=== PATIENT | female | born 1965 | race Caucasian/White ===

== ENCOUNTER 2017-11-06 14:47 | Emergency (ER) | payer MEDICAID ==
[2017-11-06 14:52] VITALS: BMI 26.6
[2017-11-06 14:56] VITALS: RESP 18
[2017-11-06] MEDS ORDERED: Sodium Chloride 0.9% 1,000 ML IV STA (16:26)
--- NOTE | 2017-11-06 16:36 | ED PDOC ---
Arrival/HPI - General Chief Complaint: Anxiety Time Seen by Provider: 11/06/17 15:56 Historian: Patient - History of Present Illness Narrative History of Present Illness (Text): 11/06/17 16:30 52 year o9ld female, whose past medical history includes non-insulin dependent diabetes, who presents to the emergency department from school complaining of an episode of hyperventilation, body tingling, bilateral jaw pain, numbness around the mouth, and weakness. Patient states these symptoms began after an emotional talk with her nurse healthcare manager and subsided after 20 minutes. Patient notes she has been fasting for . Patient's last meal was yesterday. Patient is compliant with hyperglycemic medication and diabetes medication. Patient denies any fever, chills, chest pain, shortness of breath, nausea, vomiting, diarrhea, back pain, neck pain, headache, dizziness, blurry vision or any other complaints. 11/06/17 17:50 Time/Duration: 1-3 hours Symptom Onset: Sudden Symptom Course: Improving Activities at Onset: Light Context: Work Past Medical History - Provider Review Nursing Documentation Reviewed: Yes - Infectious Disease Hx of Infectious Diseases: None - Reproductive Menopause: Yes - Psychiatric Hx Substance Use: No - Anesthesia Hx Anesthesia: No Hx Anesthesia Reactions: No Hx Malignant Hyperthermia: No Family/Social History - Physician Review Nursing Documentation Reviewed: Yes Family/Social History: Unknown Family HX Smoking Status: Never Smoked Hx Alcohol Use: No Hx Substance Use: No Allergies/Home Meds Allergies/Adverse Reactions: Allergies No Known Allergies Allergy (Verified 11/06/17 15:57) Review of Systems - Physician Review All systems were reviewed & negative as marked: Yes - Review of Systems Constitutional: Fatigue Eyes: Normal ENT: Normal Respiratory: Other (hyperventilation). absent: SOB, Cough Cardiovascular: Normal. absent: Chest Pain, Palpitations Gastrointestinal: Normal. absent: Abdominal Pain, Diarrhea, Nausea, Vomiting Genitourinary Female: Normal. absent: Dysuria, Hematuria, Urine Output Changes Musculoskeletal: Other (bilateral jaw pain; numbness around the mouth). absent : Back Pain, Neck Pain Skin: Normal. absent: Rash Neurological: Normal. absent: Headache, Dizziness Endocrine: Normal Hemo/Lymphatic: Normal Psychiatric: Normal Physical Exam Vital Signs Reviewed: Yes Vital Signs Temp Pulse Resp BP Pulse Ox 11/06/17 16:25 79 18 152/74 H 98 11/06/17 14:52 98.6 F 88 18 162/88 H 99 Temperature: Afebrile Blood Pressure: Hypertensive Pulse: Regular Respiratory Rate: Normal Appearance: Positive for: Well-Appearing, Non-Toxic, Comfortable Pain Distress: None Mental Status: Positive for: Alert and Oriented X 3 - Systems Exam Head: Present: Atraumatic, Normocephalic Pupils: Present: PERRL Extroacular Muscles: Present: EOMI Conjunctiva: Present: Normal Mouth: Present: Moist Mucous Membranes Neck: Present: Normal Range of Motion. No: Meningeal Signs, MIDLINE TENDERNESS , JVD Respiratory/Chest: Present: Clear to Auscultation, Good Air Exchange. No: Respiratory Distress, Accessory Muscle Use Cardiovascular: Present: Regular Rate and Rhythm, Normal S1, S2. No: Murmurs Abdomen: No: Tenderness, Distention, Peritoneal Signs Back: Present: Normal Inspection. No: CVA Tenderness, Midline Tenderness Upper Extremity: Present: Normal Inspection. No: Cyanosis, Edema Lower Extremity: Present: Normal Inspection. No: Edema, CALF TENDERNESS Neurological: Present: GCS=15, CN II-XII Intact, Speech Normal Skin: Present: Warm, Dry, Normal Color. No: Rashes Psychiatric: Present: Alert, Oriented x 3, Normal Insight, Normal Concentration Medical Decision Making ED Course and Treatment: 11/06/17 16:40 Impression: 52 year old female presents to the emergency department complaining of hyperventilation, numbness around the mouth, bilateral jaw pain, and general weakness s/p emotional talk with nurse healthcare manager. Plan: -- EKG -- Labs -- Chest X-ray -- Sodium Chloride -- Urinalysis -- Reassess and disposition Progress Notes: EKG reviewed, shows sinus bradycardia at 59 bpm . Chest X-ray reviewed, shows: LUNGS: No active pulmonary disease. PLEURA: No significant pleural effusion identified, no pneumothorax apparent. CARDIOVASCULAR: No radiographic findings to suggest acute or significant cardiovascular disease. OSSEOUS STRUCTURES: No significant abnormalities. VISUALIZED UPPER ABDOMEN: Normal. OTHER FINDINGS: None. IMPRESSION: No active disease. No significant interval change compared to the prior examination(s). 11/06/17 17:52 pt feeling better, less anxious , refusing ativan. continues to deny any complaints of chest pain . 11/06/17 18:41 nsr @ 64 bpm low voltage qrs, no ischemic st-t segments, nonarrythmogenic intervals given copy of lab tests for follow up with her regular pmd, and anxiety reduction techniques discussed. . - Lab Interpretations Lab Results: 11/06/17 16:33 11/06/17 16:33 Lab Results 11/06/17 16:33: Urine Color Light yellow, Urine Appearance Clear, Urine pH 6.5, Ur Specific [place] 1.010, Urine Protein Negative, Urine Glucose (UA) >=1000, Urine Ketones Trace H, Urine Blood Negative, Urine Nitrate Negative, Urine Bilirubin Negative, Urine Urobilinogen 0.2, Ur Leukocyte Esterase Trace H, Urine RBC Negative, Urine WBC 0 - 2, Ur Epithelial Cells 1 - 3 11/06/17 16:33: Urine Opiates Screen Negative, Urine Methadone Screen Negative, Ur Barbiturates Screen Negative, Ur Phencyclidine Scrn Negative, Ur Amphetamines Screen Negative, U Benzodiazepines Scrn Negative, U Oth Cocaine Metabols Negative, U Cannabinoids Screen Negative 11/06/17 16:33: Sodium 143, Potassium 3.5 L, Chloride 107, Carbon Dioxide 25, Anion Gap 15, BUN 15, Creatinine 0.5 L, Est GFR ( Amer) > 60, Est GFR ( Non-Af Amer) > 60, Random Glucose 74, Calcium 10.8 H, Total Bilirubin 0.5, AST 19, ALT 21, Alkaline Phosphatase 79, Total Protein 7.4, Albumin 4.3, Globulin 3.0, Albumin/Globulin Ratio 1.4 11/06/17 16:33: WBC 5.5, RBC 4.51, Hgb 12.8, Hct 37.5, MCV 83.1, MCH 28.4, MCHC 34.1, RDW 12.8, Plt Count 306, MPV 9.5, Gran % 47.5 L, Lymph % (Auto) 44.5 H, [place] % (Auto) 6.0, Eos % (Auto) 1.6, Baso % (Auto) 0.4, Gran # 2.62, Lymph # ( Auto) 2.5, [place] # (Auto) 0.3, Eos # (Auto) 0.1, Baso # (Auto) 0.02 - RAD Interpretation Radiology Orders: 11/06/17 15:58 CHEST PORTABLE [RAD] Stat - Medication Orders Current Medication Orders: Discontinued Medications Sodium Chloride (Sodium Chloride 0.9%) 1,000 mls @ 999 mls/hr IV .Q1H1M STA Stop: 11/06/17 17:26 Last Admin: 11/06/17 16:32 Dose: 999 mls/hr eMAR Start Stop Document 11/06/17 16:32 OCS (Rec: 11/06/17 16:32 OCS [id number]) Intravenous Solution Start Date 11/06/17 Start Time 16:32 End Date 11/06/17 End time 17:33 Total Infusion Time 61 Lorazepam (Ativan) 0.5 mg PO ONCE ONE PRN Reason: Protocol Stop: 11/06/17 16:57 Last Admin: 11/06/17 17:20 Dose: Not Given Non-Admin Reason: Patient Refused - Scribe Statement The provider has reviewed the documentation as recorded by the Scribe Whitley Duarte All medical record entries made by the Scribe were at my direction and personally dictated by me. I have reviewed the chart and agree that the record accurately reflects my personal performance of the history, physical exam, medical decision making, and the department course for this patient. I have also personally directed, reviewed, and agree with the discharge instructions and disposition. Disposition/Present on Arrival - Present on Arrival Any Indicators Present on Arrival: No History of DVT/PE: No History of Uncontrolled Diabetes: No Urinary Catheter: No History of Decub. Ulcer: No History Surgical Site Infection Following: None - Disposition Have Diagnosis and Disposition been Completed?: Yes Diagnosis: Anxiety Disposition: HOME/ ROUTINE Disposition Time: 18:43 Patient Plan: Discharge Condition: IMPROVED Print Language: KAZAKH Additional Instructions: Deep breathing , looking at your problem from a larger perspective, going for a walk, and engaging with supportive loved ones will help you to weathe rfuture anxiety episodes. You can take the prescribed medication for overwhleming anxiety , we also have outpatient counselors available at your disposal . You should also eat pre sunset breakfast while you are taking antihyperglycemic medication. Prescriptions: hydrOXYzine HCl [Atarax] 50 mg PO Q8 PRN #20 tab PRN Reason: Anxiety Referrals: Aamir Taylor MD [Primary Care Provider] - Follow up with primary Forms: [employer] (Slovenian)
--- NOTE | 2017-11-06 16:41 | RAD ---
HISTORY: Routine medical exam. COMPARISON: 09/06/2013 FINDINGS: LUNGS: No active pulmonary disease. PLEURA: No significant pleural effusion identified, no pneumothorax apparent. CARDIOVASCULAR: No radiographic findings to suggest acute or significant cardiovascular disease. OSSEOUS STRUCTURES: No significant abnormalities. VISUALIZED UPPER ABDOMEN: Normal. OTHER FINDINGS: None. IMPRESSION: No active disease. No significant interval change compared to the prior examination(s).
[2017-11-06 17:18] LABS: BASO # 0.02 K/mm3 (0.0-2.0); BASO % 0.4 % (0.0-3.0); EOS # 0.1 (0.0-0.7); EOS % 1.6 % (1.5-5.0); GRAN # 2.62 (1.4-6.5); GRAN % 47.5 % (50.0-68.0); HEMOGLOBIN 12.8 g/dL (12.0-16.0); LYMPH # 2.5 (1.2-3.4); LYMPH % 44.5 % (22.0-35.0); MEAN CELL VOLUME 83.1 fl (80.0-105.0); MEAN CORPUSCULAR HEMOGLOBIN 28.4 pg (25.0-35.0); MEAN CORPUSCULAR HGB CONC 34.1 g/dl (31.0-37.0); MEAN PLATELET VOLUME 9.5 fl (7.0-11.0); MONO # 0.3 (0.1-0.6); RBC 4.51 10^6/uL (3.5-6.1); RED CELL DISTRIBUTION WIDTH 12.8 % (11.5-14.5); WHITE BLOOD COUNT 5.5 10^3/ul (4.5-11.0)
[2017-11-06 17:19] LABS: ALB/GLOB RATIO 1.4 (1.1-1.8); ALBUMIN 4.3 g/dL (3.0-4.8); ALT/SGPT 21 U/L (7-56); AST/SGOT 19 U/L (14-36); BLOOD UREA NITROGEN 15 mg/dL (7-21); CALCIUM 10.8 mg/dL (8.4-10.5); GFR AFRICAN-AMERICAN > 60; GFR NON-AFRICAN AMERICAN > 60
[2017-11-06 17:33] LABS: BARBITURATES, UR NEGATIVE (NEGATIVE); BENZODIAZEPINES, UR NEGATIVE (NEGATIVE); OPIATES, UR NEGATIVE (NEGATIVE); PHENCYCLIDINE, UR NEGATIVE (NEGATIVE)
[2017-11-06 17:53] LABS: PH,URINE 6.5 (4.7-8.0); URINE BILIRUBIN NEGATIVE (NEGATIVE); URINE BLOOD NEGATIVE (NEGATIVE); URINE GLUCOSE (UA) >=1000 mg/dL (NEGATIVE); URINE LEUKOCYTE ESTERASE TRACE Leu/uL (NEGATIVE); URINE PROTEIN NEGATIVE mg/dL (<30 mg/dL); URINE UROBILINOGEN 0.2 E.U./dL (<1 E.U./dL)
[2017-11-06 17:55] LABS: URINE APPEARANCE CLEAR (CLEAR); URINE COLOR LIGHT YELLOW (YELLOW)
[2017-11-06 18:07] LABS: URINE RBC NEGATIVE /hpf (0-2); URINE WBC 0 - 2 /hpf (0-6)
[2017-11-06 19:10] VITALS: BP 113/70; PULSE 61; TEMP 97.6; O2SAT 100
--- NOTE | 2017-11-07 12:42 | CARD ---
APPROVED REPORT EKG Measurement Heart [id number] <Conclusion> Normal sinus rhythm Low voltage QRS
--- NOTE | 2017-11-07 12:47 | CARD ---
APPROVED REPORT EKG Measurement Heart [id number] <Conclusion> Sinus bradycardia
== END 2017-11-06 19:05 | disposition home or self-care (01) ==
LOC: ED 14:47
DX: F41.9 Anxiety disorder, unspecified (principal); E11.9 Type 2 diabetes mellitus without complications
CPT/HCPCS: 71045; 80053; 80324; 80345; 80346; 80349; 80353; 80358; 80361; 81001; 82948; 83992; 85025; 87086; 87181; 93005; 96360; 99283; J7040